=== PATIENT | male | born 1945 | race Caucasian/White ===

== ENCOUNTER → 2024-11-27 10:59 | Outpatient (REF) | payer OTHER, SELFPAY | LOC: HWRAD 10:59 | PROVIDERS: ATTENDING PHYSICIAN Student in an Organized Health Care Education/Training Program | DX: R31.0 Gross hematuria (principal) | CPT/HCPCS: 76770 ==

== ENCOUNTER → 2024-12-25 07:10 | Outpatient (REF) | payer OTHER, SELFPAY | LOC: RAD 07:10 | PROVIDERS: ATTENDING PHYSICIAN Surgery; FAMILY PHYSICIAN Student in an Organized Health Care Education/Training Program | DX: D49.4 Neoplasm of unspecified behavior of bladder (principal) | CPT/HCPCS: 74178; Q9967 ==

== ENCOUNTER 2025-01-19 06:30 | Day surgery (SDC) | payer OTHER, SELFPAY ==
[2025-01-13 13:49] VITALS: BMI 31.5
--- NOTE | 2025-01-14 15:16 | PTCARENOTE ---
Abnormal ECG done 01/13/[address] Gongora. No previous ECG's available from PCP office. No further intervention requested.
[2025-01-19] VITALS (13 sets, daily range): BP systolic 146–207; BP diastolic 74–135; BMI 31.5
[2025-01-19] MEDS: NORMOSOL-R/PLASMALYTE-A 1000 IV (12:04)
[2025-01-19] MEDS: CYSVIEW KIT 100 MG INTRAVES (12:06)
[2025-01-19] MEDS: DILAUDID 0.5 MG IV (16:06)
[2025-01-19] MEDS: DETROL LA 4 MG PO (16:38)
[2025-01-19] MEDS: Pyridium 200 MG PO (16:39)
== END 2025-01-19 18:18 | disposition home or self-care (01) ==
LOC: SDS 06:30
PROVIDERS: ATTENDING PHYSICIAN Surgery; FAMILY PHYSICIAN Student in an Organized Health Care Education/Training Program
DX: C67.2 Malignant neoplasm of lateral wall of bladder (principal); R31.0 Gross hematuria
CPT/HCPCS: 52240; 51720; C9738; 88307; 36415; 88341; 88342; 93005; A9589

== ENCOUNTER 2025-01-22 00:22 | Emergency (ER) | payer OTHER, SELFPAY ==
[2025-01-22 00:37] VITALS: BMI 30.7
[2025-01-22 00:38] VITALS: BP 153/87
[2025-01-22] MEDS: LIDOCAINE URO-JET 2% 1 SYRINGE TOPICAL (00:55)
[2025-01-22 01:41] VITALS: BP 136/71
--- NOTE | 2025-01-22 01:41 | ED.GENMED ---
History of Present Illness
General
Chief Complaint: Male Genito-Urinary Symptoms
Source: patient, spouse and family (Daughter at bedside)
Nursing documentation reviewed up to this point in time: agreed with
History of Present Illness
History of Present Illness:
This is an 79-year-old gentleman who has history of bladder cancer underwent bladder tumor removal on January 19. Since discharge home he has had weak urinary stream with intermittent mild hematuria and intermittent passage of debris/sediment
in his urine. Currently maintained on twice daily Keflex and has been taking Pyridium with questionable improvement yesterday but has had marked difficulty urinating since this afternoon, passing only small dribbles of urine with increased urge to
void. He has not had a fever nor chills. No back pain or flank pain. No coughing or shortness of breath.
His last bowel movement was Sunday prior to surgery. He does admit to moderately decreased oral intake over the past 2 days but has had no nausea nor vomiting.
He called the urologist office and was instructed to come to the ED for further evaluation, potential Osorio catheter placement.
Upon arrival to the ED. Bladder scan revealed 600 cc in the bladder after voiding approximately 50 cc. No evidence of gross hematuria.
Past History
Past History
ED Past Medical History: Cancer (Bladder)
ED Past Surgical History: Appendectomy, Tonsilectomy and Urological (Excision of bladder tumor January 19, 2025)
Social History
Tobacco: Smoker (Cigars)
Personal:
Living: with family
Employment: Retired
Family History
Family History: Other (Noncontributory)
Phy Exam
Physical Exam
Physical Exam:
GENERAL: 79-year-old gentleman appears somewhat younger than stated age. Bright and alert, pleasant, appears in no acute distress. and daughter are accompanying.
EYE: anicteric
NECK: Supple, nontender
ENT: oral mucosa is moist.
CARDIAC: Regular rate and rhythm. no murmur.
LUNGS: Clear breath sounds bilaterally, no acute respiratory distress, no wheezes/rales/rhonchi
ABDOMEN: Soft, nondistended, mild tenderness suprapubic over palpably mildly distended bladder, no r/g, no cvat. normoactive BS.
NEUROLOGICAL: Alert and oriented x3, no focal neuro deficits. Gait is steady.
SKIN: Warm and dry, normal color, skin intact. No rash.
MUSCULOSKELETAL: No C/C/E. peripheral pulses are full and equal b/l. No palpable tenderness.
PSYCH: Normal and appropriate interaction.
Course
Orders/Labs/Results
Orders:
Orders
01/22/25 00:51
Lidocaine 2% [Lidocaine Uro-Jet 2%] 1 syringe .ROUTE .[facility]
Lidocaine 2% [Lidocaine Uro-Jet 2%] 1 syringe TOPICAL NOW STA
01/22/25 01:01
Osorio Placement- Treatment ONCE
Reason for insertion: Outlet obstruction
Vital Signs
Initial and Last Documented VS:
Initial Vital Signs
Temp Pulse Resp BP Pulse Ox
98.8 F 72 18 153/87 95
01/22/25 00:38 01/22/25 00:38 01/22/25 00:38 01/22/25 00:38 01/22/25 00:38
Last Documented Vital Signs
Temp Pulse Resp BP Pulse Ox
98.8 F 72 18 153/87 95
01/22/25 00:38 01/22/25 00:38 01/22/25 00:38 01/22/25 00:38 01/22/25 00:38
MDM/Problems Addressed
Differential Diagnosis Includes:
Patient presents with acute urinary retention/bladder outlet obstruction likely related to recent bladder tumor excision on January 19.
Postvoid residual of [address] Osorio catheter and plan for discharge to home with Osorio catheter in place.
Patient currently on oral antibiotics for infection prevention. Therefore we will hold off on urinalysis/urine culture. He has had no dysuria, no fever.
Recommend prompt follow-up with urologist to discuss timing of catheter removal.
Chronic conditions affecting care: Cancer and Other (Recent TURBT)
*Pulse Oximetry
Patient hypoxic: no
*Critical Care Note
Total Time (30-74mins, 75-104mins- exclusive of procedures): Not Applicable
ED Attending Note
-
Portions of this chart may have been created with voice recognition software.� Occasional wrong word or��sound alike� substitutions may have occurred due to the inherent limitations of voice recognition software.
Discharge Plan
Departure
Patient Disposition: Home (Routine Discharge)
Date of Disposition: 01/22/25
Time of Disposition: :
Patient with high blood pressure during this ER visit?: Yes
Condition: Good
Discharge Problem:
post operative bladder outlet obstructio
Instructions: How to Care for Your Osorio Catheter, Male, BLOOD PRESSURE
Prescriptions:
No Action
No Current Medications
0
Referrals:
Jama Reyes MD [Active] - Follow up in 5-7 days
Activity Restrictions/Additional Instructions:
Call Dr. Reyes's office tomorrow to let them know you have a Osorio catheter in place.
They will arrange for office visit for removal of Osorio catheter.
Interventions
Interventions:
*Risk Screen - Suicide Last Done: 01/22/25 00:41
*General Assessment Last Done: 01/22/25 00:41
*Neglect/Abuse Screening Last Done: 01/22/25 00:41
*ED- Fall Risk Assessment Last Done: 01/22/25 00:40
*ED COVID-19 Vaccine History Last Done: 01/22/25 00:40
ED-Male Genitourinary Assessment Last Done: 01/22/25 00:53
Discharge Date and Time
Print Language: SALVADOREAN
== END 2025-01-22 01:52 | disposition home or self-care (01) ==
LOC: EMR 00:22
PROVIDERS: EMERGENCY PHYSICIAN Emergency Medicine; FAMILY PHYSICIAN Student in an Organized Health Care Education/Training Program
DX: N99.89 Other postprocedural complications and disorders of genitourinary system (principal); F17.290 Nicotine dependence, other tobacco product, uncomplicated; Z85.51 Personal history of malignant neoplasm of bladder; Z90.49 Acquired absence of other specified parts of digestive tract
CPT/HCPCS: 99282; 51702

== ENCOUNTER → 2025-04-14 08:18 | Outpatient (REF) | payer OTHER, SELFPAY ==
[2025-04-14 09:00] VITALS: BP 175/84; BP_SYST 65
[2025-04-14] MEDS: ANCEF 10 IV (09:25)
[2025-04-14 10:25] VITALS: BP 193/93; BP_SYST 64
== END ==
LOC: RADI 08:18
PROVIDERS: ATTENDING PHYSICIAN Internal Medicine Hematology & Oncology
DX: C67.2 Malignant neoplasm of lateral wall of bladder (principal)
CPT/HCPCS: 36561; 76937; 77001; 99152; 99153; C1788

== ENCOUNTER → 2025-04-20 10:44 | Outpatient (REF) | payer OTHER, SELFPAY ==
[2025-04-20 10:53] LABS: % Basophils 0.3 % (0-2); % Eosinophils 2.4 % (0-6); % Immature Granulocytes 0.4 % (0-0.5); % Lymphocytes 23.1 % (20.5-51.1); % Monocytes 8.8 % (1.7-9.3); Absolute Eosinophils 0.2 10^3/uL (0-0.7); Absolute Lymphocytes 1.6 10^3/uL (1.2-3.4); Absolute Monocytes 0.6 10^3/uL (0.1-0.6); Absolute Neutrophils 4.6 10^3/uL (1.4-6.5); Hemoglobin 13.8 g/dL (13.0-18.0); Mean Corp Hgb Conc. 33.7 g/dL (33.0-37.0); Mean Corpuscular Hgb 31.3 pg (27.0-31.0); Mean Platelet Volume 9.1 fL (7.4-10.4); Platelet Count 247 10^3/uL (130-400); Red Blood Cell Count 4.41 10^6/uL (4.70-6.10); Red Cell Dist. Width 13.1 % (11.5-14.5)
[2025-04-20 12:35] LABS: ALT (SGPT) 15 U/L (0-50); AST (SGOT) 22 U/L (17-59); Albumin 4.5 g/dl (3.5-5.0); Alkaline Phosphatase 91 U/L (38-126); Blood Urea Nitrogen 15 mg/dl (9-20); Calcium 9.4 mg/dl (8.4-10.2); Carbon Dioxide 25 mmol/L (22-30); Chloride 107 mmol/L (98-107); Glucose 95 mg/dl (70-99); Magnesium 1.8 mg/dl (1.6-2.3); Potassium 4.5 mmol/L (3.5-5.1); Sodium 141 mmol/L (135-145); Total Bilirubin 1.1 mg/dl (0.2-1.3); Total Protein 8.1 g/dl (6.3-8.2); eGFR > 60.00
== END ==
LOC: OIDL 10:44
PROVIDERS: ATTENDING PHYSICIAN Internal Medicine Hematology & Oncology
DX: C67.2 Malignant neoplasm of lateral wall of bladder (principal)
CPT/HCPCS: 80053; 83735; 84443; 85025

== ENCOUNTER → 2025-05-11 15:50 | Outpatient (REF) | payer OTHER, SELFPAY ==
[2025-05-11 14:18] LABS: % Basophils 0.1 % (0-2); % Eosinophils 0.9 % (0-6); % Immature Granulocytes 23.6 % (0-0.5); % Lymphocytes 17.9 % (20.5-51.1); % Monocytes 13.5 % (1.7-9.3); Absolute Eosinophils 0.1 10^3/uL (0-0.7); Absolute Immature Granulocytes 3.4 10^3/uL (0-0.05); Absolute Lymphocytes 2.6 10^3/uL (1.2-3.4); Absolute Monocytes 1.9 10^3/uL (0.1-0.6); Absolute Neutrophils 6.3 10^3/uL (1.4-6.5); Hematocrit 30.3 % (39.0-52.0); Hemoglobin 10.7 g/dL (13.0-18.0); Mean Corp Hgb Conc. 35.3 g/dL (33.0-37.0); Mean Corpuscular Hgb 31.8 pg (27.0-31.0); Mean Corpuscular Volume 90.2 fL (80.0-94.0); Mean Platelet Volume 10.5 fL (7.4-10.4); Nucleated Red Blood Cells % 0.2 % (-); Platelet Count 112 10^3/uL (130-400); Red Blood Cell Count 3.36 10^6/uL (4.70-6.10); Red Cell Dist. Width 12.7 % (11.5-14.5); White Blood Cell Count 14.3 10^3/uL (4.8-10.8)
== END ==
LOC: OIDL 15:50
PROVIDERS: ATTENDING PHYSICIAN Nurse Practitioner Adult Health
DX: C67.2 Malignant neoplasm of lateral wall of bladder (principal)
CPT/HCPCS: 85025

== ENCOUNTER → 2025-05-19 15:02 | Outpatient (REF) | payer OTHER, SELFPAY ==
[2025-05-19 15:45] LABS: Hematocrit 32.7 % (39.0-52.0); Hemoglobin 11.5 g/dL (13.0-18.0); Mean Corp Hgb Conc. 35.2 g/dL (33.0-37.0); Mean Corpuscular Volume 89.6 fL (80.0-94.0); Platelet Count 183 10^3/uL (130-400); Red Cell Dist. Width 12.6 % (11.5-14.5)
[2025-05-19 16:12] LABS: Nucleated Red Blood Cells % 0 % (-)
[2025-05-19 16:28] LABS: ALT (SGPT) 18 U/L (0-50); AST (SGOT) 24 U/L (17-59); Albumin 4.0 g/dl (3.5-5.0); Alkaline Phosphatase 136 U/L (38-126); Blood Urea Nitrogen 16 mg/dl (9-20); Calcium 8.2 mg/dl (8.4-10.2); Carbon Dioxide 24 mmol/L (22-30); Chloride 102 mmol/L (98-107); Glucose 287 mg/dl (70-99); Magnesium 1.2 mg/dl (1.6-2.3); Potassium 4.0 mmol/L (3.5-5.1); Sodium 135 mmol/L (135-145); Total Protein 7.4 g/dl (6.3-8.2); eGFR > 60.00
== END ==
LOC: OIDL 15:02
PROVIDERS: ATTENDING PHYSICIAN Nurse Practitioner Primary Care
DX: C67.2 Malignant neoplasm of lateral wall of bladder (principal)
CPT/HCPCS: 80053; 83735; 85025

== ENCOUNTER → 2025-06-22 10:23 | Outpatient (REF) | payer OTHER, SELFPAY ==
[2025-06-22 10:50] LABS: Hematocrit 23.8 % (39.0-52.0); Hemoglobin 8.0 g/dL (13.0-18.0); Mean Corp Hgb Conc. 33.6 g/dL (33.0-37.0); Mean Corpuscular Volume 97.9 fL (80.0-94.0); Platelet Count 130 10^3/uL (130-400); Red Cell Dist. Width 20.1 % (11.5-14.5)
[2025-06-22 11:59] LABS: Iron 74 ug/dl (49-181)
[2025-06-22 12:09] LABS: Total Iron Binding Capacity 260 ug/dl (261-462)
[2025-06-22 12:31] LABS: Ferritin 570.0 ng/ml (17.9-464.0)
[2025-06-22 13:02] LABS: Folate > 20.0 ng/ml (2.76-20); Vitamin B12 > 1000 pg/ml (239-931)
== END ==
LOC: OIDL 10:23
PROVIDERS: ATTENDING PHYSICIAN Nurse Practitioner Adult Health
DX: C67.2 Malignant neoplasm of lateral wall of bladder (principal)
CPT/HCPCS: 82607; 82728; 82746; 83540; 83550; 85025; 86850; 86900; 86901

== ENCOUNTER 2025-06-24 10:25 | Outpatient (RCR) | payer OTHER, SELFPAY ==
[2025-06-24 11:07] VITALS: BP 146/65
[2025-06-24 11:29] VITALS: BP 146/65
[2025-06-24 13:03] VITALS: BP 172/80
[2025-06-24 14:03] VITALS: BP 172/80
== END 2025-07-19 23:59 | disposition home or self-care (01) ==
LOC: OID 10:25
PROVIDERS: ATTENDING PHYSICIAN Nurse Practitioner Adult Health; FAMILY PHYSICIAN Student in an Organized Health Care Education/Training Program
DX: C67.2 Malignant neoplasm of lateral wall of bladder (principal); D64.9 Anemia, unspecified; R53.83 Other fatigue; D50.9 Iron deficiency anemia, unspecified; Z72.0 Tobacco use
CPT/HCPCS: 36430; 86850; 86900; 86901; 86920; P9016

== ENCOUNTER → 2025-07-09 08:53 | Outpatient (REF) | payer OTHER, SELFPAY | LOC: RAD 08:53 | PROVIDERS: ATTENDING PHYSICIAN Nurse Practitioner Adult Health; FAMILY PHYSICIAN Student in an Organized Health Care Education/Training Program | DX: C67.2 Malignant neoplasm of lateral wall of bladder (principal) | CPT/HCPCS: 71260; 74177; Q9967 ==

== ENCOUNTER 2025-07-12 20:21 | Emergency (ER) | payer OTHER, SELFPAY ==
[2025-07-12] VITALS (10 sets, daily range): BP systolic 124–156; BP diastolic 58–89
--- NOTE | 2025-07-12 20:45 | ED.GENMED ---
History of Present Illness
General
Chief Complaint: Weakness
Source: patient
Exam Limitations: none
Time Seen by Provider: 07/12/25 20:30
History of Present Illness
History of Present Illness:
See MDM
Past History
Past History
ED Past Medical History: Cancer (Bladder)
ED Past Surgical History: Appendectomy, Tonsilectomy and Urological (Excision of bladder tumor January 19, 2025)
Social History
Tobacco: Smoker (Cigars)
Personal:
Living: with family
Employment: Retired
Family History
Family History: Other (Noncontributory)
Phy Exam
Physical Exam
Physical Exam:
See MDM
Course
Orders/Labs/Results
Orders:
Orders
07/12/25 20:41
0.9% Sodium Chloride 1000 ml [Nss] 1,000 ml IV BOLUS
07/12/25 20:58
Type+Screen Urgent
Complete Blood Count/With Diff Urgent
Comprehensive Metabolic Panel Urgent
Magnesium Urgent
Manual Differential Urgent
PTT Urgent
Prothrombin Time Urgent
07/12/25 21:22
Blood Bank Products [* Blood Bank Products] Urgent
's Orders: Ulisses Sesay DO
Blood Bank Products: *Packed RBC Leuko(PRBC's)
Quantity: 2
Transfuse Today: Yes
Reason: Anemia
07/12/25 21:42
Magnesium Sulfate 4 Gram/100Ml [Magnesium Sulfate] 4 gram in 100 ml IV NOW
Abnormal Lab Results
07/12/25
20:58
RBC 1.72 L 10^6/uL
(4.70-6.10)
Hgb 5.7 L* g/dL
(13.0-18.0)
Hct 16.4 L* %
(39.0-52.0)
MCV 95.3 H fL
(80.0-94.0)
MCH 33.1 H pg
(27.0-31.0)
RDW 17.2 H %
(11.5-14.5)
Plt Count 25 L* 10^3/uL
(130-400)
MPV 12.4 H fL
(7.4-10.4)
Band Neutrophils 9 H %
(0-3)
Lymphocytes (Manual) 12 L %
(20-51)
PT 14.9 H Sec
(11.4-14.6)
Glucose 187 H mg/dl
(70-99)
Magnesium 0.9 L* mg/dl
(1.6-2.3)
Crossmatch IS Only See Detail
07/12/25 20:58
07/12/25 20:58
Vital Signs
Initial and Last Documented VS:
Initial Vital Signs
BP
156/72
07/12/25 20:33
Last Documented Vital Signs
Temp Pulse Resp BP Pulse Ox
98.3 F 88 16 148/58 97
07/12/25 23:07 07/12/25 23:07 07/12/25 23:07 07/12/25 23:07 07/12/25 23:06
MDM/Problems Addressed
Differential Diagnosis Includes:
Note:
CHIEF COMPLAINT(S)
Generalized weakness and feeling unwell.
HISTORY OF PRESENT ILLNESS
The patient is an 79-year-old male with a history of bladder cancer who recently completed chemotherapy about one week prior to this visit. The patient reports feeling generally weak and unwell since that time. He describes his blood pressure as
having been low before coming to the emergency department, measured at 111/60 mmHg. He admits to not drinking enough water. The patient has some nasal bleeding, primarily from the left nostril, which starts and stops intermittently. His balance has
been worse than usual for the past 12 days, though originally he reported poor balance in general. He spent the afternoon sitting and resting, as he felt weaker upon standing or while moving. The patient does not experience cough, congestion, fever,
or pain while urinating. He also notes that his stools have been more difficult to pass, but denies being constipated. He reports not consuming alcohol or smoking cigars since beginning chemotherapy.
PAST MEDICAL AND SURGICAL HISTORY
The patient has a history of bladder cancer.
ADDITIONAL HISTORY OBTAINED FROM SOURCES OTHER THAN THE PATIENT
According to the patients spouse, the patient completed chemotherapy a week ago and has had platelet and hemoglobin transfusions in the past. The last hemoglobin transfusion was due to a level of 7.9.
CHRONIC MEDICAL CONDITIONS SIGNIFICANTLY AFFECTING CARE
Bladder cancer post-chemotherapy.
SOCIAL HISTORY
The patient has a history of alcohol consumption, preferring gin and tonic, specifically mentioning [employer] and [employer]. However, he has abstained from alcohol since starting chemotherapy.
PHYSICAL EXAM
General: Alert, no acute distress.
Skin: Warm, dry.
Head: Normocephalic, atraumatic
Neck: Appears supple, trachea midline.
Eyes, Ears, Nose, Mouth, and Throat: Mildly dry mucous membranes
Cardiovascular: No signs of cyanosis
Respiratory: Respirations are non-labored. Lungs clear
Abdomen: Non-distended. Soft and nontender
Musculoskeletal: No deformities
Neurological: No focal neurological deficit observed.
Psychiatric: Cooperative, appropriate mood and affect.
PLAN
1. Obtain laboratory studies including complete blood count to assess hemoglobin and platelet levels.
2. Evaluate the need for transfusion based on laboratory results.
3. Consider consultation with oncology to discuss possible chemotherapy-related anemia.
4. Encourage adequate hydration to address possible dehydration.
5. Plan for discharge if labs allow, while closely monitoring any need for further intervention or support.
DIFFERENTIAL DIAGNOSIS
The Differential Diagnosis includes, in no particular order and is not limited to:
1. Chemotherapy-induced anemia
2. Dehydration
3. Orthostatic hypotension
4. Infection-related weakness (though less likely without fever or other signs of infection)
5. Medication-induced side effects
6. Electrolyte imbalance
7. Cerebellar dysfunction
8. Peripheral neuropathy
9. Anemia secondary to other causes such as gastrointestinal bleeding
10. Hyponatremia
07/12/25 - :36
Hemoglobin is critically low at 5.7, correlating with symptoms of weakness. Plan to administer two units of packed red blood cells. Magnesium level is also low at 0.9. Plan to administer magnesium transfusion.
07/12/25 - :58
Discussed with the oncologist that due to the absence of active bleeding, there is no current need for a platelet transfusion despite the anemia.
SUMMARY OF ENCOUNTER
The patient, an 79-year-old male, was seen in the emergency department due to generalized weakness and feeling unwell post-chemotherapy for bladder cancer. Upon evaluation, he was found to have symptomatic anemia and thrombocytopenia as likely side
effects of his recent chemotherapy. Despite the thrombocytopenia, there was no active bleeding, negating the need for a platelet transfusion. A blood transfusion was administered due to low hemoglobin levels, which improved his condition and
resolved his tachycardia. The patient was monitored closely and responded well to the treatments, reporting a feeling of improvement.
PLAN
1. Continue monitoring hemoglobin and platelet levels.
2. Encourage adequate hydration to prevent dehydration.
3. Follow up with oncology as scheduled for further evaluation of chemotherapy effects.
INDEPENDENT REVIEW OF LABS AND INTERPRETATION OF TESTS
My independent review of the Complete Blood Count (CBC) is critically low hemoglobin at 5.7 g/dL, suggesting significant anemia, and low magnesium at 0.9 mg/dL.
FOLLOW-UP INSTRUCTIONS
The patient has an oncology appointment scheduled for tomorrow. He understands strict return precautions should his condition worsen.
MEDICATION RECONCILIATION
The patient received a blood transfusion to address the critically low hemoglobin level. No additional medications are prescribed or administered.
MEDICAL DECISION MAKING
-Complexity of Data Reviewed: Chronic conditions affecting care [bladder cancer post-chemotherapy, symptomatic anemia, thrombocytopenia]
-Data:
Category 1
Clinical information was obtained from an independent historian: Input from the patients spouse regarding past transfusions and chemotherapy status.
Category 3
Discussion of management with oncology regarding the patients anemia and the decision not to pursue a platelet transfusion.
DIAGNOSIS
Chemotherapy-induced anemia (D64.89)
Thrombocytopenia due to chemotherapy (D69.6)
*Pulse Oximetry
Patient hypoxic: no
*Critical Care Note
Total Time (30-74mins, 75-104mins- exclusive of procedures): Not Applicable
ED Attending Note
-
Portions of this chart may have been created with voice recognition software.� Occasional wrong word or��sound alike� substitutions may have occurred due to the inherent limitations of voice recognition software.
Discharge Plan
Departure
Patient Disposition: Home (Routine Discharge)
Date of Disposition: 07/13/25
Time of Disposition: 00:08
Patient with high blood pressure during this ER visit?: No
Discharge Problem:
Symptomatic anemia, Thrombocytopenia
Prescriptions:
No Action
multivitamin Tablet
1 tab PO DAILY
ondansetron HCl [Zofran] 8 mg Tablet
8 mg PO Q8H PRN (Reason: nausea with chemo)
Magnesium Gummies
400 mg PO HS
Referrals:
Jenny Rutherford MD, Resident [Family Provider, General]
Activity Restrictions/Additional Instructions:
Please keep your oncology appointment tomorrow. Please discuss your anemia, your low magnesium and your low platelets.
Please return for worsening symptoms or any evidence of bleeding.
Interventions
Interventions:
*Risk Screen - Suicide Last Done: 07/12/25 20:34
*General Assessment Last Done: 07/12/25 20:34
*Neglect/Abuse Screening Last Done: 07/12/25 20:34
*ED- Fall Risk Assessment Last Done: 07/12/25 20:34
*ED COVID-19 Vaccine History Last Done: 07/12/25 20:34
ED- Cardiac Assessment Last Done: 07/12/25 20:34
ED- Neurological Assessment Last Done: 07/12/25 20:34
ED- Pulmonary Assessment Last Done: 07/12/25 20:34
Discharge Date and Time
Print Language: THAI
[2025-07-12 21:15] LABS: INR 1.14; PT 14.9 Sec (11.4-14.6)
[2025-07-12 21:16] LABS: APTT 29.7 Sec (23.4-35.0); Mean Corp Hgb Conc. 34.8 g/dL (33.0-37.0); Mean Corpuscular Volume 95.3 fL (80.0-94.0); Red Cell Dist. Width 17.2 % (11.5-14.5)
[2025-07-12] MEDS: NSS 1000 IV (21:16)
[2025-07-12 21:17] LABS: Hematocrit 16.4 % (39.0-52.0); Hemoglobin 5.7 g/dL (13.0-18.0); Platelet Count 25 10^3/uL (130-400)
[2025-07-12 21:29] LABS: ALT (SGPT) 16 U/L (0-50); AST (SGOT) 19 U/L (17-59); Albumin 3.8 g/dl (3.5-5.0); Alkaline Phosphatase 100 U/L (38-126); Blood Urea Nitrogen 16 mg/dl (9-20); Calcium 8.5 mg/dl (8.4-10.2); Carbon Dioxide 23 mmol/L (22-30); Chloride 105 mmol/L (98-107); Estimated Creatinine Clearance 83 ml/min; Glucose 187 mg/dl (70-99); Magnesium 0.9 mg/dl (1.6-2.3); Potassium 3.9 mmol/L (3.5-5.1); Sodium 136 mmol/L (135-145); Total Protein 6.5 g/dl (6.3-8.2); eGFR > 60.00
[2025-07-12 21:56] LABS: Absolute Neutrophils -Man Diff 6.2 10^3/uL (1.4-6.5)
[2025-07-12 21:57] LABS: Anisocytosis 1+; Normal RBC Morphology No; Platelets Checked Yes; Tear Drop Red Blood Cells 1+
[2025-07-12 21:58] LABS: Acanthocytes Occasional
[2025-07-12 21:59] LABS: Total Cells Counted 100
[2025-07-12] MEDS: MAGNESIUM SULFATE 100 IV (21:59)
[2025-07-13] VITALS (9 sets, daily range): BP systolic 137–158; BP diastolic 63–90
--- NOTE | 2025-07-13 03:02 | VATNOTE ---
07/13 025
Patients port deaccessed per hospital protocol. Patient being discharged.
== END 2025-07-13 03:10 | disposition home or self-care (01) ==
LOC: EMR 20:21
PROVIDERS: EMERGENCY PHYSICIAN Student in an Organized Health Care Education/Training Program; FAMILY PHYSICIAN Student in an Organized Health Care Education/Training Program
DX: D64.9 Anemia, unspecified (principal); D69.6 Thrombocytopenia, unspecified; F17.290 Nicotine dependence, other tobacco product, uncomplicated; Z85.51 Personal history of malignant neoplasm of bladder
CPT/HCPCS: 99285; 36430; 96374; 96361; 80053; 83735; 85025; 85610; 85730; 86850; 86900; 86901; 86920; P9016

== ENCOUNTER → 2025-07-21 15:22 | Outpatient (REF) | payer OTHER, SELFPAY ==
[2025-07-21 10:39] LABS: Hematocrit 23.4 % (39.0-52.0); Hemoglobin 7.8 g/dL (13.0-18.0); Mean Corp Hgb Conc. 33.3 g/dL (33.0-37.0); Mean Corpuscular Volume 100.9 fL (80.0-94.0); Platelet Count 199 10^3/uL (130-400); Red Cell Dist. Width 19.3 % (11.5-14.5)
== END ==
LOC: OIDL 15:22
PROVIDERS: ATTENDING PHYSICIAN Nurse Practitioner Adult Health
DX: C67.2 Malignant neoplasm of lateral wall of bladder (principal)
CPT/HCPCS: 85025; 86850; 86900; 86901

== ENCOUNTER → 2025-08-18 12:29 | Outpatient (REF) | payer OTHER, SELFPAY ==
[2025-08-18 11:26] LABS: Hematocrit 32.1 % (39.0-52.0); Hemoglobin 10.5 g/dL (13.0-18.0); Mean Corp Hgb Conc. 32.7 g/dL (33.0-37.0); Mean Corpuscular Volume 102.6 fL (80.0-94.0); Platelet Count 177 10^3/uL (130-400); Red Cell Dist. Width 14.4 % (11.5-14.5)
[2025-08-18 12:36] LABS: ALT (SGPT) 17 U/L (0-50); AST (SGOT) 26 U/L (17-59); Albumin 4.1 g/dl (3.5-5.0); Alkaline Phosphatase 92 U/L (38-126); Blood Urea Nitrogen 25 mg/dl (9-20); Calcium 9.2 mg/dl (8.4-10.2); Carbon Dioxide 28 mmol/L (22-30); Chloride 103 mmol/L (98-107); Glucose 96 mg/dl (70-99); Potassium 4.3 mmol/L (3.5-5.1); Sodium 137 mmol/L (135-145); Total Protein 7.4 g/dl (6.3-8.2); eGFR > 60.00
== END ==
LOC: OIDL 12:29
PROVIDERS: ATTENDING PHYSICIAN Internal Medicine Hematology & Oncology
DX: C67.2 Malignant neoplasm of lateral wall of bladder (principal)
CPT/HCPCS: 80053; 84443; 85025

== ENCOUNTER 2025-08-24 06:33 | Day surgery (SDC) | payer OTHER, SELFPAY ==
[2025-08-10 14:18] VITALS: BMI 29.3
[2025-08-24] VITALS (7 sets, daily range): BP systolic 160–174; BP diastolic 77–88
[2025-08-24] MEDS: NORMOSOL-R/PLASMALYTE-A 1000 IV (06:35)
[2025-08-24] MEDS: DETROL LA 4 MG PO (08:29)
== END 2025-08-24 09:40 | disposition home or self-care (01) ==
LOC: SDS 06:33
PROVIDERS: ATTENDING PHYSICIAN Surgery; FAMILY PHYSICIAN Student in an Organized Health Care Education/Training Program
DX: C67.9 Malignant neoplasm of bladder, unspecified (principal); Z92.21 Personal history of antineoplastic chemotherapy
CPT/HCPCS: 52235; 36415; 88307; 93005; 94640